=== PATIENT | male | born 1990 | race Caucasian/White ===

== ENCOUNTER → 2017-12-06 | Outpatient (CLI) | payer BC ==
[~2017-12-06] MED LIST: DIATRIZOATE MEGL/DIATRIZOA SOD 30 ML BTL PO ONE
[2017-12-06 14:30] LABS: BASOPHILS # (AUTO) 0.1 (0.0-0.1); BASOPHILS % 0.5 % (0.0-1.0); EOSINOPHILS # (AUTO) 0.3 (0.0-0.4); EOSINOPHILS % 1.9 % (0.0-6.0); HEMATOCRIT 42.8 % (38.2-49.6); HEMOGLOBIN 14.1 g/dL (14.0-18.0); LYMPHOCYTES % 37.2 % (18.0-39.1); MEAN CORPUSCULAR HEMOGLOBIN 27.2 pg (28-32); MEAN CORPUSCULAR HGB CONC 32.9 g/dL (31-35); MEAN CORPUSCULAR VOLUME 82.6 fL (81-99); MONOCYTES # (AUTO) 0.6 (0.2-0.8); MONOCYTES % 4.4 % (4.4-11.3); NEUTROPHILS # (AUTO) 7.5 (2.1-6.9); NEUTROPHILS % 55.5 % (38.7-80.0); PLATELET COUNT 320 x10e3/uL (140-360); RED BLOOD COUNT 5.18 x10e6/uL (4.3-5.7); RED CELL DISTRIBUTION WIDTH 13.8 % (11.7-14.4)
[2017-12-06 14:45] LABS: BILIRUBIN,URINE NEGATIVE (NEGATIVE); CLARITY,URINE SL CLOUDY (CLEAR); COLOR,URINE YELLOW (YELLOW); EPITHELIAL CELLS,URINE RARE /LPF; KETONES,URINE NEGATIVE (NEGATIVE); LEUKOCYTE ESTERASE ,URINE NEGATIVE (NEGATIVE); NITRITE,URINE NEGATIVE (NEGATIVE); PROTEIN,URINE DIPSTICK NEGATIVE (NEGATIVE); URINE UROBILINOGEN 0.2 mg/dL (0.2 - 1)
[2017-12-06 14:47] LABS: ALANINE AMINOTRANSFERASE 73 IU/L (0-55); ALBUMIN 3.6 g/dL (3.5-5.0); ALBUMIN/GLOBULIN RATIO 0.9 (0.8-2.0); ALKALINE PHOSPHATASE 84 IU/L (40-150); ANION GAP 11.4 mmol/L (8-16); BLOOD UREA NITROGEN 13 mg/dL (7-26); BUN/CREATININE RATIO 16 (6-25); CALCIUM 9.2 mg/dL (8.4-10.2); CARBON DIOXIDE 29 mmol/L (22-29); CHLORIDE 103 mmol/L (98-107); CREATININE, SERUM 0.82 mg/dL (0.72-1.25); EST GLOMERULAR FILTRATION RATE > 60 ML/MIN (60-); GLUCOSE 93 mg/dL (74-118); POTASSIUM 3.4 mmol/L (3.5-5.1); SODIUM 140 mmol/L (136-145)
--- NOTE | 2017-12-06 16:19 | Diagnostic Imaging Report ---
PROCEDURE: CT ABDOMEN AND PELVIS WITH CONTRAST TECHNIQUE: The abdomen and pelvis were scanned utilizing a multidetector helical scanner from the diaphragm to the lesser trochanter after the IV administration of 100 cc of Isovue 370 and the oral administration of Gastroview/water. Coronal and sagittal multiplanar reformations were obtained. DLP: 1393.77 mGy-cm COMPARISON: None. INDICATIONS: colon hernia FINDINGS: LOWER THORAX: Normal. HEPATOBILIARY: Hepatic steatosis with hepatomegaly. The liver is incompletely visualized but measures at least 23.5 cm in length in the right midclavicular line. Focal fatty sparing adjacent to the gallbladder and diana hepatis. No biliary ductal dilatation. SPLEEN: No splenomegaly. PANCREAS: No focal masses or ductal dilatation. ADRENALS: No adrenal nodules. KIDNEYS/URETERS: No hydronephrosis, stones, or solid mass lesions. PELVIC ORGANS/BLADDER: Focal bladder wall thickening at the dome (sagittal image 81) measuring approximately 2.5 cm in thickness. There a focus of air within this area of wall thickening with connection between the bladder dome and sigmoid colon (coronal image 56). PERITONEUM / RETROPERITONEUM: No free air or fluid. LYMPH NODES: No lymphadenopathy. VESSELS: Unremarkable. GI TRACT: No distention or wall thickening aside from the segment of sigmoid colon abutting the bladder. Colonic diverticula without evidence acute diverticulitis. The left abdominal wall is not completely visualized and extends out of the scan. 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 The hernia sac measures approximately 15.6 x 13 x 19.5 cm (SI x AP x TV) with 6.1 x 7.3 cm (SI x TV) neck. No evidence of strangulation or obstruction. BONES AND SOFT TISSUES: See above regarding left abdominal wall. Otherwise, unremarkable. IMPRESSION: 1. 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 No evidence of strangulation or obstruction. 2. Findings concerning for colovesicular fistula at the anterior bladder dome related to sigmoid diverticular disease. 3. Hepatomegaly and hepatic steatosis. Dictated by: Sotero Darnell M.D. on 12/06/2017 at 16:19 Electronically approved by: Sotero Darnell M.D. on 12/06/2017 at 16:19
[2017-12-06 17:03] LABS: EOSINOPHILS % (MANUAL) 2 % (0-7); HYPOCHROMASIA MODE; LYMPHOCYTES % (MANUAL) 37 % (19-48); MONOCYTES % (MANUAL) 8 % (3.4-9.0); NEUTROPHILS % (MANUAL) 53 % (40-74); PLATELET ESTIMATE ADEQUATE; POLYCHROMASIA FEW; RBC MORPHOLOGY COMMENT ABNORMAL
== END ==
LOC: CT 14:01
PROVIDERS: ATTEND Surgery
DX: Z93.3 Colostomy status (principal); K43.5 Parastomal hernia without obstruction or gangrene; K76.0 Fatty (change of) liver, not elsewhere classified; R16.0 Hepatomegaly, not elsewhere classified
CPT/HCPCS: 36415; 74177; 80053; 81001; 85025; 87086

== ENCOUNTER 2018-06-12 20:35 | Inpatient (IN) | payer BC ==
[~2018-06-12] VITALS: Ht 182.9 cm; Wt 140.8 kg
[2018-06-12] MEDS ORDERED: ONDANSETRON HCL INJ 2 MG/ML VIAL IV STA (21:28)
[2018-06-12] MEDS ORDERED: ACETAMINOPHEN 1000 MG/100 ML IV STA (21:28)
[2018-06-12] MEDS ORDERED: SODIUM CHLORIDE 0.9% 1000ML 1,000 ML IV ONE (21:30)
[2018-06-12] MEDS ORDERED: PIPER-TAZ 3.375 GM 50 ML IV STA (21:34)
[2018-06-12] MEDS ORDERED: DIATRIZOATE MEGL/DIATRIZOA SOD 30 ML BTL PO ONE (21:40)
[2018-06-12 22:01] LABS: BASOPHILS % 0.2 % (0.0-1.0); EOSINOPHILS % 0.1 % (0.0-6.0); HEMATOCRIT 41.1 % (38.2-49.6); HEMOGLOBIN 13.5 g/dL (14.0-18.0); LYMPHOCYTES # (AUTO) 0.8 (1.0-3.2); LYMPHOCYTES % 8.6 % (18.0-39.1); MEAN CORPUSCULAR HEMOGLOBIN 27.1 pg (28-32); MEAN CORPUSCULAR HGB CONC 32.8 g/dL (31-35); MEAN CORPUSCULAR VOLUME 82.5 fL (81-99); MONOCYTES % 0.4 % (4.4-11.3); NEUTROPHILS # (AUTO) 8.4 (2.1-6.9); NEUTROPHILS % 90.2 % (38.7-80.0); PLATELET COUNT 278 x10e3/uL (140-360); RED BLOOD COUNT 4.98 x10e6/uL (4.3-5.7); RED CELL DISTRIBUTION WIDTH 13.8 % (11.7-14.4)
[2018-06-12 22:18] LABS: ALANINE AMINOTRANSFERASE 47 IU/L (0-55); ALBUMIN 3.4 g/dL (3.5-5.0); ALBUMIN/GLOBULIN RATIO 0.7 (0.8-2.0); ALKALINE PHOSPHATASE 108 IU/L (40-150); ANION GAP 17.3 mmol/L (8-16); BLOOD UREA NITROGEN 14 mg/dL (7-26); BUN/CREATININE RATIO 11 (6-25); CALCIUM 9.5 mg/dL (8.4-10.2); CARBON DIOXIDE 20 mmol/L (22-29); CHLORIDE 98 mmol/L (98-107); CREATININE, SERUM 1.26 mg/dL (0.72-1.25); EST GLOMERULAR FILTRATION RATE > 60 ML/MIN (60-); GLUCOSE 116 mg/dL (74-118); POTASSIUM 3.3 mmol/L (3.5-5.1); SODIUM 132 mmol/L (136-145)
[2018-06-12] MEDS ORDERED: SODIUM CHLORIDE 0.9% 50ML 50 ML ONE (23:01)
[2018-06-12] MEDS ORDERED: IOPAMIDOL 370 MG/ML 200 ML INFUS..BTL INJ ONE (23:01)
[2018-06-12 23:02] LABS: BILIRUBIN,URINE 1+ (NEGATIVE); CLARITY,URINE SL CLOUDY (CLEAR); COLOR,URINE ORANGE (YELLOW); KETONES,URINE TRACE (NEGATIVE); LEUKOCYTE ESTERASE ,URINE TRACE (NEGATIVE); NITRITE,URINE NEGATIVE (NEGATIVE); PROTEIN,URINE DIPSTICK 2+ (NEGATIVE); URINE UROBILINOGEN 4 mg/dL (0.2 - 1)
[2018-06-12 23:03] LABS: BACTERIA,URINE RARE /HPF; EPITHELIAL CELLS,URINE FEW /LPF; MUCUS,URINE FEW (RARE)
--- NOTE | 2018-06-12 23:56 | Diagnostic Imaging Report ---
EXAM: CT ABDOMEN AND PELVIS with IV CONTRAST DATE: 06/12/2018 9:28 PM Time stamp on Exam: 2255 hours INDICATION: Abdominal pain, fever, nausea, pain right groin COMPARISON: CT of the abdomen and pelvis December 06, 2017 TECHNIQUE: The abdomen and pelvis were scanned using a multidetector helical scanner. Coronal and sagittal reformations were obtained. Dose modulation, iterative reconstruction, and/or weight based adjustment of the mA/kV was utilized to reduce the radiation dose to as low as reasonably achievable. Routine protocol performed. IV Contrast: 100 cc Isovue 370 Oral Contrast: Gastrografin FINDINGS: LOWER THORAX: No consolidations LIVER: No masses BILIARY: The gallbladder is unremarkable. No ductal dilation. SPLEEN: No masses PANCREAS: No masses ADRENALS: No nodules KIDNEYS: Symmetric perfusion. No enhancing masses. No hydronephrosis. GI TRACT: Abnormal loop of sigmoid colon with wall thickening and several diverticula. There is direct colonic attachment to the underlying bladder with an approximately 3.6 cm circular area containing debris and contrast within the bladder wall dome. Surrounding inflammation. No bowel obstruction. Normal appendix. VESSELS: Unremarkable PERITONEUM/RETROPERITONEUM: No free air or fluid LYMPH NODES: No lymphadenopathy REPRODUCTIVE ORGANS: Unremarkable BLADDER: Marked bladder wall thickening and surrounding inflammation. SOFT TISSUES: Large hernia left lower abdomen. Per report the patient has a colostomy, which is out of field of view. Parastomal hernia contains loops of large and small bowel without obstruction. BONES: No suspicious bone lesions. IMPRESSION: Findings as described above are most consistent with diverticulitis of the sigmoid colon with fistulization to the bladder dome. Signed by: Dr. Laura West M.D. on 06/12/2018 11:52 PM
[2018-06-13] VITALS (10 sets, daily range): BP systolic 115–144; BP diastolic 50–72
[2018-06-13] MEDS: METRONIDAZOLE 500MG/NS 100ML 100 ML IV SCH ×3 (01:07→11:51)
[2018-06-13] MEDS: KCL 20MEQ/.9 SOD CHL 1,000 ML IV SCH ×3 (01:07→15:51)
[2018-06-13] MEDS: ONDANSETRON HCL INJ 2 MG/ML VIAL IV PRN ×4 (01:40→20:50)
[2018-06-13] MEDS: MORPHINE SULFATE 2 MG/ML SYR IV PRN ×5 (01:40→20:50)
[2018-06-13] MEDS: PIPER-TAZ 3.375 GM / NS 50ML IV SCH ×3 (05:12→21:05)
[2018-06-13] MEDS: ACETAMINOPHEN 1000 MG/100 ML IV PRN ×2 (08:35→17:07)
--- NOTE | 2018-06-13 08:43 | History and Physical ---
CHIEF COMPLAINT: Burning and frequency of urine and lower abdominal pain since the last 3-4 days and progressively worsening associated with fever. HISTORY OF PRESENT ILLNESS: A 28-year-old pleasant male with a past medical history of partial colectomy with diverting colostomy done in May 2015 for colovesical fistula was admitted at [facility] with the above complaints. As per the patient, he had colovesical fistula in May 2015. Had partial colectomy with diverting colostomy. After that, the patient did not have health insurance so did not go for reversion colostomy. The patient was seen in my office this year for the first time. The patient was referred to surgeon, Dr. Barry Roe, for treatment. During the last 3 years, the patient also developed colostomy hernia. The patient started having burning and urine frequency since the last 3-4 days. Then the patient started having lower abdominal pain progressively getting worse associated with fever with generalized weakness. Hence, the patient came to the ER last night. In the emergency room, the patient was found to have diverticulitis with colovesical fistula, and hence the patient was admitted for further care and treatment. In the emergency room, the patient was given IV Flagyl, IV Zosyn, IV fluids. At present, the patient is lying comfortably in bed. No apparent distress. No chest pain. No shortness of breath. No nausea, vomiting or diarrhea. No loss of consciousness. No palpitations. No headaches. No hematemesis. No melena. No hematuria. No palpitations. No seizures. No abnormal bleeding. Fever plus. Lower abdominal pain plus. PAST MEDICAL HISTORY 1. Ulcerative colitis. 2. Diverticulitis, status post partial colectomy with colostomy in 2014 due to colovesical fistula. MEDICATIONS: None. SURGICAL HISTORY: Partial colectomy with colostomy in 2014. FAMILY HISTORY: Noncontributory. SOCIAL HISTORY: No smoking. No alcohol. No recreational drug use. and lives with family. ALLERGIES: NO KNOWN DRUG ALLERGIES. REVIEW OF SYSTEMS: As per HPI. PHYSICAL EXAMINATION GENERAL: The patient is alert and oriented times 3. No apparent distress. Lying in bed. VITALS: T-max is 102, temperature 102, pulse 100 per minute, respiratory rate 18 per minute, blood pressure is 127/66, saturation 98%. HEENT: No signs of icterus. No pallor. Normocephalic and atraumatic. PERRLA. NECK: Soft and supple. No JVD or lymphadenopathy. LUNGS: Air entry bilaterally. HEART: S1 and S2. No murmur or gallop. ABDOMEN: Soft. Lower abdominal tenderness plus. RANGE AIDE: Alert and oriented times 3. No focal deficits. EXTREMITIES: No cyanosis. No clubbing. No edema. No calf pain. LABS: On admission to the ER, white count 9.2, hemoglobin 13.5, hematocrit 41.1, and platelets 278,000. Sodium 132, potassium 3.3, chloride 98, bicarb 20, BUN 14, creatinine 1.26, glucose 116. AST 41, ALT 47, alkaline phosphatase 108. Blood and urine cultures pending. CT of the abdomen and pelvis with IV contrast shows diverticulitis of the sigmoid colon with fistula in the bladder dome. ASSESSMENT: Diverticulitis with colovesical fistula with urinary tract infection. PLAN: Admit the patient to medical floor. Flagyl 500 mg IVPB q.6 h., Zosyn 3.375 g IVPB q.8 h. Pancultures, IV fluids, n.p.o. Surgical consult with Dr. Barry Roe. Urology consultation with Dr. Reyes. ID consultation with Dr. Webb. GI consultation with Dr. Varela. Check serial lytes. Further care and treatment while the patient is in the hospital. Discussed with the patient in detail. Job#: [id number] KEILA
[2018-06-13 08:44] LABS: BASOPHILS % 0.3 % (0.0-1.0); HEMATOCRIT 35.9 % (38.2-49.6); HEMOGLOBIN 11.6 g/dL (14.0-18.0); LYMPHOCYTES # (AUTO) 0.7 (1.0-3.2); LYMPHOCYTES % 5.1 % (18.0-39.1); MEAN CORPUSCULAR HEMOGLOBIN 26.8 pg (28-32); MEAN CORPUSCULAR HGB CONC 32.3 g/dL (31-35); MEAN CORPUSCULAR VOLUME 82.9 fL (81-99); MONOCYTES # (AUTO) 0.4 (0.2-0.8); MONOCYTES % 2.8 % (4.4-11.3); NEUTROPHILS # (AUTO) 11.8 (2.1-6.9); NEUTROPHILS % 91.3 % (38.7-80.0); PLATELET COUNT 220 x10e3/uL (140-360); RED BLOOD COUNT 4.33 x10e6/uL (4.3-5.7); RED CELL DISTRIBUTION WIDTH 14.1 % (11.7-14.4)
[2018-06-13 09:07] LABS: ALANINE AMINOTRANSFERASE 75 IU/L (0-55); ALBUMIN 2.7 g/dL (3.5-5.0); ALBUMIN/GLOBULIN RATIO 0.7 (0.8-2.0); ALKALINE PHOSPHATASE 77 IU/L (40-150); ANION GAP 16.6 mmol/L (8-16); BLOOD UREA NITROGEN 13 mg/dL (7-26); BUN/CREATININE RATIO 11 (6-25); CALCIUM 8.1 mg/dL (8.4-10.2); CARBON DIOXIDE 20 mmol/L (22-29); CHLORIDE 103 mmol/L (98-107); CREATININE, SERUM 1.14 mg/dL (0.72-1.25); EST GLOMERULAR FILTRATION RATE > 60 ML/MIN (60-); GLUCOSE 107 mg/dL (74-118); POTASSIUM 3.6 mmol/L (3.5-5.1); SODIUM 136 mmol/L (136-145)
--- NOTE | 2018-06-13 13:00 | Consultation ---
DATE OF CONSULTATION: REASON FOR CONSULTATION 1. UTI. 2. History of diverticulitis. HISTORY OF PRESENT ILLNESS: This patient who is 28-year-old male with history of obesity. He had a partial colectomy with diverting colostomy done in 2014 for colovesical fistula, was done at [facility], he is telling me that, but the H and P said [facility]. The patient is telling me he has not followed up with his surgeon. He is coming with fever and chills, which had been gone on for a week, not feeling well for a week, urgency and frequency. The urine looked also dark according to him. The patient finally came to the hospital where he is being admitted. He was started on metronidazole and piperacillin and tazobactam. The patient was currently lying in bed comfortably. He said he is feeling better. PAST MEDICAL HISTORY: Apparently ulcerative colitis, diverticulitis, status post partial colectomy and colostomy 2014, colovesical fistula. ALLERGIES: NKA. SOCIAL HISTORY: There is no smoking, drug abuse, or alcohol use. FAMILY HISTORY: Otherwise unremarkable. REVIEW OF SYSTEMS HEENT: Negative. PULMONARY: Negative. CARDIAC: Negative. : As above. He said there is urgency, frequency, and left flank pain. GI: Some nausea. No vomiting. LABORATORY DATA: White count on admission was 9.29, today is 12.9. Sodium is 136, potassium 3.6, and creatinine 1.14. Blood cultures still pending. Patient did have a CAT scan of abdomen and pelvis showed diverticulitis of the sigmoid colon with fistulization to the bladder dome. PHYSICAL EXAMINATION GENERAL: He is currently alert and oriented, does not seem to be in any acute distress. VITAL SIGNS: T-max had been 102.8. HEENT: Not icteric. NECK: Supple. CHEST: Clear. HEART: S1, S2. No murmur. ABDOMEN: Soft. Bowel sounds present. No tenderness. EXTREMITIES: No edema. IMPRESSION: Diverticulitis with the fistula to the bladder with pyelonephritis. PLAN: blood cultures and urine cultures. He is currently on piperacillin and tazobactam. Continue the same. Await cultures and sensitivity. We can discontinue the metronidazole. Await urine culture and sensitivity. Await blood cultures. We will need GI evaluation. We will follow with you. ZACK: 06/13/2018 11:57 Job#: [id number] VALDEZ
--- NOTE | 2018-06-13 19:54 | Consultation ---
DATE OF CONSULTATION: June 13, 2018 This is a 28-year-old gentleman who has a history of partial colectomy with colostomy in 2015 because of colovesical fistula and diverticulitis. The patient apparently complains of some burning and urinary frequency. The patient was found to have UTI. However, upon admission he did have a CT scan, which shows of the sigmoid colon with colovesical fistula also. His medical history at one point he was diagnosed with ulcerative colitis, but he is not taking medication for that. He also has a history of diverticulitis. Again, status post surgery of partial colectomy with colostomy in 2015. MEDICATIONS: At home are none. ALLERGIES: NONE. SOCIAL HISTORY: No alcohol use. FAMILY HISTORY: Noncontributory. REVIEW OF SYSTEMS: Denies any chest pain or shortness of breath. Denies any dysphagia or odynophagia. Denies any history of hematuria or any kind of syncopal episode. PHYSICAL EXAMINATION GENERAL: The patient is awake, alert and appears to be stable. Medically stable at this point. VITAL SIGNS: The patient is febrile with a temperature of 103.1. HEENT: Normocephalic. Sclerae are anicteric. NECK: Supple. HEART: Regular. ABDOMEN: Soft. Colostomy is in place. At this point, it is nontender. EXTREMITIES: No clubbing or cyanosis. LAB VALUES: Significant for WBC of 12.9, hemoglobin of 11.6. The liver enzymes are also elevated with AST of 86 and ALT of 75. He is mildly anemic too. CT scan as mentioned before. IMPRESSION 1. Possible sigmoid diverticulitis with colovesical fistula. 2. Urinary tract infection. 3. Elevated liver function tests. 4. Anemia. RECOMMENDATIONS: Continue antibiotics at this point. Would recommend colonoscopy later on as an outpatient for prior to resection. Abdominal ultrasound also to evaluate the liver. Also, obtain workup for liver disease. Job#: [id number] KEILA cc:ROBERT FERRER M.D.
[2018-06-14] VITALS (7 sets, daily range): BP systolic 117–148; BP diastolic 69–79
[2018-06-14] MEDS: KCL 20MEQ/.9 SOD CHL 1,000 ML IV SCH ×3 (01:11→19:56)
[2018-06-14] MEDS: ONDANSETRON HCL INJ 2 MG/ML VIAL IV PRN ×3 (01:13→17:43)
[2018-06-14] MEDS: MORPHINE SULFATE 2 MG/ML SYR IV PRN ×4 (01:13→14:24)
[2018-06-14 05:40] LABS: BASOPHILS % 0.3 % (0.0-1.0); EOSINOPHILS # (AUTO) 0.1 (0.0-0.4); EOSINOPHILS % 0.7 % (0.0-6.0); HEMATOCRIT 34.1 % (38.2-49.6); HEMOGLOBIN 11.1 g/dL (14.0-18.0); LYMPHOCYTES # (AUTO) 1.1 (1.0-3.2); LYMPHOCYTES % 15.5 % (18.0-39.1); MEAN CORPUSCULAR HEMOGLOBIN 26.9 pg (28-32); MEAN CORPUSCULAR HGB CONC 32.6 g/dL (31-35); MEAN CORPUSCULAR VOLUME 82.8 fL (81-99); MONOCYTES # (AUTO) 0.5 (0.2-0.8); NEUTROPHILS # (AUTO) 5.4 (2.1-6.9); NEUTROPHILS % 75.9 % (38.7-80.0); PLATELET COUNT 192 x10e3/uL (140-360); RED BLOOD COUNT 4.12 x10e6/uL (4.3-5.7); RED CELL DISTRIBUTION WIDTH 13.9 % (11.7-14.4)
[2018-06-14] MEDS: PIPER-TAZ 3.375 GM / NS 50ML IV SCH ×3 (05:45→21:08)
[2018-06-14 06:01] LABS: ALANINE AMINOTRANSFERASE 79 IU/L (0-55); ALBUMIN 2.5 g/dL (3.5-5.0); ALBUMIN/GLOBULIN RATIO 0.6 (0.8-2.0); ALKALINE PHOSPHATASE 70 IU/L (40-150); ANION GAP 14.3 mmol/L (8-16); BLOOD UREA NITROGEN 8 mg/dL (7-26); BUN/CREATININE RATIO 9 (6-25); CALCIUM 8.3 mg/dL (8.4-10.2); CARBON DIOXIDE 22 mmol/L (22-29); CHLORIDE 102 mmol/L (98-107); CREATININE, SERUM 0.87 mg/dL (0.72-1.25); EST GLOMERULAR FILTRATION RATE > 60 ML/MIN (60-); GLUCOSE 101 mg/dL (74-118); POTASSIUM 3.3 mmol/L (3.5-5.1); SODIUM 135 mmol/L (136-145)
[2018-06-14] MEDS ORDERED: POTASSIUM CHLORIDE 20 MEQ TAB CR PO STA (08:04)
[2018-06-14] MEDS ORDERED: ACETAMINOPHEN 325 MG TAB PO PRN (08:15)
--- NOTE | 2018-06-14 13:41 | Diagnostic Imaging Report ---
EXAM: Complete Abdominal Ultrasound INDICATION: \S\ELEVATED LFT COMPARISON: CT abdomen and pelvis 06/12/2018 TECHNIQUE: Transverse and longitudinal images of the upper abdomen were obtained. FINDINGS: Liver: Size: 17.1 cm in the right midclavicular line, increased Appearance: Increased echogenicity, smooth contour Mass: No focal masses Spleen: Size: 12.5 cm in length, normal Echogenicity: Normal Mass: No focal masses Gallbladder: Stones/Sludge: 0.4 cm echogenic rounded structure within the gallbladder, which is nonmobile may represent a polyp or nonmobile stone. Wall: 0.2 cm Appearance: No wall thickening, pericholecystic fluid or hydrops. Sonographic Mcgarry's Sign: Negative Bile Ducts: Intrahepatic Ducts: No dilatation Extrahepatic Ducts: Common bile duct measures 0.4 cm, no dilatation Pancreas: Visualized portions of the pancreatic head, neck and proximal body are normal. Kidneys: Length: Right 12.1 cm Left 12.2 cm Echogenicity: Normal Collecting System: No hydronephrosis Stone: None Cyst/Mass: None Vessels: Aorta: Visualized portions are normal Inferior Vena Cava: Visualized portions are normal Main Portal Vein: 1.0 cm, normal size with hepatopetal flow. Free Fluid: No ascites or pleural effusion IMPRESSION: 1. Mild hepatomegaly with associated hepatic steatosis. 2. Borderline spleen may relate to early portal hypertension. The main portal vein is normal in size. 3. Small echogenic structure in the gallbladder (0.4 cm) may represent a nonmobile stone versus gallbladder polyp. Signed by: Dr. Salina Sheikh M.D. on 06/14/2018 1:38 PM
[2018-06-14] MEDS: ENOXAPARIN SOD INJ 40 MG/0.4 ML SYR SC SCH (17:37)
[2018-06-14] MEDS: MORPHINE SULFATE INJ 4 MG/ML INJ IV PRN ×2 (18:58→23:40)
[2018-06-15] VITALS (8 sets, daily range): BP systolic 131–144; BP diastolic 71–83
[2018-06-15] MEDS: KCL 20MEQ/.9 SOD CHL 1,000 ML IV SCH ×4 (00:30→21:56)
[2018-06-15] MEDS: MORPHINE SULFATE INJ 4 MG/ML INJ IV PRN ×5 (03:27→21:50)
[2018-06-15] MEDS: PIPER-TAZ 3.375 GM / NS 50ML IV SCH ×2 (05:30→14:09)
[2018-06-15 06:47] LABS: BASOPHILS % 0.5 % (0.0-1.0); EOSINOPHILS # (AUTO) 0.2 (0.0-0.4); HEMATOCRIT 34.9 % (38.2-49.6); HEMOGLOBIN 11.3 g/dL (14.0-18.0); LYMPHOCYTES # (AUTO) 1.2 (1.0-3.2); LYMPHOCYTES % 18.3 % (18.0-39.1); MEAN CORPUSCULAR HEMOGLOBIN 26.6 pg (28-32); MEAN CORPUSCULAR HGB CONC 32.4 g/dL (31-35); MEAN CORPUSCULAR VOLUME 82.1 fL (81-99); MONOCYTES # (AUTO) 0.5 (0.2-0.8); MONOCYTES % 7.2 % (4.4-11.3); NEUTROPHILS # (AUTO) 4.4 (2.1-6.9); NEUTROPHILS % 70.4 % (38.7-80.0); PLATELET COUNT 196 x10e3/uL (140-360); RED BLOOD COUNT 4.25 x10e6/uL (4.3-5.7)
[2018-06-15 07:15] LABS: ALANINE AMINOTRANSFERASE 83 IU/L (0-55); ALBUMIN 2.5 g/dL (3.5-5.0); ALBUMIN/GLOBULIN RATIO 0.6 (0.8-2.0); ALKALINE PHOSPHATASE 87 IU/L (40-150); ANION GAP 15.7 mmol/L (8-16); BLOOD UREA NITROGEN 5 mg/dL (7-26); BUN/CREATININE RATIO 7 (6-25); CALCIUM 8.7 mg/dL (8.4-10.2); CARBON DIOXIDE 23 mmol/L (22-29); CHLORIDE 104 mmol/L (98-107); CREATININE, SERUM 0.76 mg/dL (0.72-1.25); EST GLOMERULAR FILTRATION RATE > 60 ML/MIN (60-); GLUCOSE 93 mg/dL (74-118); POTASSIUM 3.7 mmol/L (3.5-5.1); SODIUM 139 mmol/L (136-145)
[2018-06-15] MEDS: ONDANSETRON HCL INJ 2 MG/ML VIAL IV PRN (08:10)
[2018-06-15] MEDS: ENOXAPARIN SOD INJ 40 MG/0.4 ML SYR SC SCH (17:26)
[2018-06-15] MEDS: CEFTRIAXONE SOD 1 GM VIAL IV SCH (17:26)
[2018-06-16] VITALS (7 sets, daily range): BP systolic 122–154; BP diastolic 59–97
[2018-06-16] MEDS ORDERED: SODIUM CHLORIDE 0.9% 50ML 50 ML ONE (01:54)
[2018-06-16] MEDS: CEFTRIAXONE SOD 1 GM VIAL IV SCH ×2 (02:03→15:34)
[2018-06-16] MEDS: MORPHINE SULFATE INJ 4 MG/ML INJ IV PRN ×5 (02:04→20:33)
[2018-06-16] MEDS: KCL 20MEQ/.9 SOD CHL 1,000 ML IV SCH (06:52)
[2018-06-16 07:25] LABS: ALANINE AMINOTRANSFERASE 111 IU/L (0-55); ALBUMIN 2.7 g/dL (3.5-5.0); ALBUMIN/GLOBULIN RATIO 0.6 (0.8-2.0); ALKALINE PHOSPHATASE 140 IU/L (40-150); ANION GAP 16.4 mmol/L (8-16); BLOOD UREA NITROGEN 6 mg/dL (7-26); BUN/CREATININE RATIO 7 (6-25); CALCIUM 9.4 mg/dL (8.4-10.2); CARBON DIOXIDE 24 mmol/L (22-29); CHLORIDE 103 mmol/L (98-107); CREATININE, SERUM 0.85 mg/dL (0.72-1.25); EST GLOMERULAR FILTRATION RATE > 60 ML/MIN (60-); GLUCOSE 94 mg/dL (74-118); POTASSIUM 4.4 mmol/L (3.5-5.1); SODIUM 139 mmol/L (136-145)
[2018-06-16] MEDS: ONDANSETRON HCL INJ 2 MG/ML VIAL IV PRN (11:30)
[2018-06-16] MEDS: ENOXAPARIN SOD INJ 40 MG/0.4 ML SYR SC SCH (17:07)
[2018-06-17] VITALS (7 sets, daily range): BP systolic 123–160; BP diastolic 57–95
--- NOTE | 2018-06-17 00:46 | Progress Note ---
DATE: GASTROENTEROLOGY PROGRESS NOTE SUBJECTIVE: The patient reports that the abdominal pain is mildly improved, however, still on liquids. OBJECTIVE VITAL SIGNS: Febrile. LUNGS: Clear. CVS: S1 and S2 normal. ABDOMEN: Soft. Mild diffuse tenderness. IMPRESSION: Abdominal pain and diverticulitis, complicated by colovesical fistula. RECOMMENDATIONS AND PLAN 1. Advance diet as per surgery recommendations. 2. Consider repeat CT scan next week. 3. Continue IV antibiotics. Job#: [id number] RTMarcia
[2018-06-17] MEDS: CEFTRIAXONE SOD 1 GM VIAL IV SCH (03:28)
[2018-06-17] MEDS: MORPHINE SULFATE INJ 4 MG/ML INJ IV PRN ×5 (03:30→22:55)
[2018-06-17 07:14] LABS: BASOPHILS # (AUTO) 0.1 (0.0-0.1); BASOPHILS % 0.6 % (0.0-1.0); EOSINOPHILS # (AUTO) 0.3 (0.0-0.4); EOSINOPHILS % 3.3 % (0.0-6.0); HEMATOCRIT 40.2 % (38.2-49.6); LYMPHOCYTES # (AUTO) 2.9 (1.0-3.2); LYMPHOCYTES % 32.7 % (18.0-39.1); MEAN CORPUSCULAR HEMOGLOBIN 26.9 pg (28-32); MEAN CORPUSCULAR HGB CONC 32.3 g/dL (31-35); MEAN CORPUSCULAR VOLUME 83.1 fL (81-99); MONOCYTES # (AUTO) 0.5 (0.2-0.8); MONOCYTES % 6.1 % (4.4-11.3); NEUTROPHILS # (AUTO) 4.8 (2.1-6.9); NEUTROPHILS % 54.6 % (38.7-80.0); PLATELET COUNT 287 x10e3/uL (140-360); RED BLOOD COUNT 4.84 x10e6/uL (4.3-5.7); RED CELL DISTRIBUTION WIDTH 14.2 % (11.7-14.4)
[2018-06-17] MEDS ORDERED: MUPIROCIN 2% OINT 22 GM TUBE ONE (07:26)
[2018-06-17 07:32] LABS: ALANINE AMINOTRANSFERASE 167 IU/L (0-55); ALBUMIN/GLOBULIN RATIO 0.6 (0.8-2.0); ALKALINE PHOSPHATASE 179 IU/L (40-150); ANION GAP 17.3 mmol/L (8-16); BLOOD UREA NITROGEN 7 mg/dL (7-26); BUN/CREATININE RATIO 8 (6-25); CARBON DIOXIDE 26 mmol/L (22-29); CHLORIDE 101 mmol/L (98-107); CREATININE, SERUM 0.83 mg/dL (0.72-1.25); EST GLOMERULAR FILTRATION RATE > 60 ML/MIN (60-); GLUCOSE 104 mg/dL (74-118); POTASSIUM 4.3 mmol/L (3.5-5.1); SODIUM 140 mmol/L (136-145)
[2018-06-17] MEDS ORDERED: FENTANYL CITRATE/PF 100MCG/2 ML INJ ONE (08:06)
[2018-06-17] MEDS ORDERED: MORPHINE SULFATE 2 MG/ML SYR ONE ×2 (08:17→08:32)
[2018-06-17] MEDS: ONDANSETRON HCL INJ 2 MG/ML VIAL IV PRN (13:20)
[2018-06-17 13:23] LABS: EOSINOPHILS % (MANUAL) 3 % (0-7); LYMPHOCYTES % (MANUAL) 44 % (19-48); METAMYELOCYTES % (MANUAL) 1 % (0-0); MONOCYTES % (MANUAL) 3 % (3.4-9.0); MYELOCYTES % (MANUAL) 2 % (0-0); NEUTROPHILS % (MANUAL) 47 % (40-74)
[2018-06-17 13:24] LABS: PLATELET ESTIMATE ADEQUATE; PLATELET MORPHOLOGY COMMENT NORMAL; RBC MORPHOLOGY COMMENT NORMAL
[2018-06-17] MEDS: CIPROFLOXACIN 500 MG TAB PO SCH (18:16)
[2018-06-17] MEDS: ENOXAPARIN SOD INJ 40 MG/0.4 ML SYR SC SCH (18:16)
[2018-06-18] VITALS: BP 122/65
[2018-06-18 00:22] VITALS: BP 126/66
[2018-06-18 04:00] VITALS: BP 123/75
[2018-06-18 05:10] LABS: ALPHA-1-ANTITRYPSIN 225 mg/dL (90-200)
[2018-06-18 05:42] LABS: ALANINE AMINOTRANSFERASE 180 IU/L (0-55); ALBUMIN/GLOBULIN RATIO 0.6 (0.8-2.0); ALKALINE PHOSPHATASE 179 IU/L (40-150); ANION GAP 18.2 mmol/L (8-16); BLOOD UREA NITROGEN 11 mg/dL (7-26); BUN/CREATININE RATIO 12 (6-25); CALCIUM 9.7 mg/dL (8.4-10.2); CARBON DIOXIDE 25 mmol/L (22-29); CHLORIDE 101 mmol/L (98-107); CREATININE, SERUM 0.95 mg/dL (0.72-1.25); EST GLOMERULAR FILTRATION RATE > 60 ML/MIN (60-); GLUCOSE 105 mg/dL (74-118); POTASSIUM 4.2 mmol/L (3.5-5.1); SODIUM 140 mmol/L (136-145)
[2018-06-18] MEDS: MORPHINE SULFATE INJ 4 MG/ML INJ IV PRN (06:06)
[2018-06-18 07:10] VITALS: BP 125/67
[2018-06-18 07:41] VITALS: BP 125/67
[2018-06-18] MEDS: CIPROFLOXACIN 500 MG TAB PO SCH (08:39)
[2018-06-18] MEDS ORDERED: CIPRO500 MG PO (10:40)
[2018-06-18] MEDS ORDERED: FLAGYL250 MG PO (10:41)
--- OUTSIDE RECORDS SUMMARY | 2018-06-18 12:51 | XMS REPORT | Clinical Summary ---
Author Author [place] [facility] Address Unknown Phone Unavailable Care Team Providers Care Tube Buffer Name Role Phone Asked, No Pcp PCP Unavailable Allergies Active Allergy Reactions Severity Noted Date Comments Barium Iodide Other (See Comments) High 03/12/2017 "intestinal swelling" Current Medications No known medications Active Problems Problem Noted Date Generalized abdominal pain 03/12/2017 Social History Tobacco Use Types Packs/Day Years Used Date Never Smoker Alcohol Use Drinks/Week oz/Week Comments No Sex Assigned at Date Recorded Not on file Last Filed Vital Signs Not on file Plan of Treatment Health Maintenance Due Date Last Done Comments INFLUENZA VACCINE 04/03/2018 Results Not on fileafter 06/11/2017
--- OUTSIDE RECORDS SUMMARY | 2018-06-18 12:51 | XMS REPORT | Clinical Summary ---
Author Author [place] [facility] Address Unknown Phone Unavailable Care Team Providers Care Career Education Teacher Name Role Phone Asked, No Pcp PCP [...] INFLUENZA VACCINE 04/03/2018 Results Not on fileafter 06/12/2017
--- OUTSIDE RECORDS SUMMARY | 2018-06-18 12:51 | XMS REPORT ---
Author Author [facility] Address Unknown Phone Unavailable Care Team Providers Care Caddy Master Name Role Phone ROBERT FERRER Unavailable Unavailable Radha LOGAN Unavailable Unavailable Problems This patient has no known problems. Allergies, Adverse Reactions, Alerts This patient has no known allergies or adverse reactions. Medications This patient has no known medications. Results Test Description Test Time Test Comments Text Results Atomic Results Result Comments US ABDOMEN COMPLETE 2018-06-14 13:35:00 [place] [address] Patient Name: TE TRAVIS MR #: [id number] : 1990 Age/Sex: 28/M Req #: [id number] [facility] Physician: ROBERT FERRER MD Ordered by: CINTHIA FERNANDEZ MD Report #: [id number] Location: MED/SURG3 Room/Bed: [facility] Procedure: [id number] US/US ABDOMEN COMPLETE Exam Date: Exam Time: REPORT STATUS: Signed EXAM: Complete Abdominal Ultrasound INDICATION: COMPARISON: CT abdomen and pelvis 06/12/2018 TECHNIQUE: Transverse and longitudinal images of the upper abdomen were obtained. FINDINGS: Liver: Size: 17.1 cm in the right midclavicular line, increased Appearance: Increased echogenicity, smooth contour Mass: No focal masses Spleen: Size: 12.5 cm in length, normal Echogenicity: Normal Mass: No focal masses Gallbladder: Stones/Sludge: 0.4 cm echogenic rounded structure within the gallbladder, which is nonmobile may represent a polyp or nonmobile stone. Wall: 0.2 cm Appearance: No wall thickening, pericholecystic fluid or hydrops. Sonographic Mcgarry's Sign: Negative Bile Ducts: Intrahepatic Ducts: No dilatation Extrahepatic Ducts: Common bile duct measures 0.4 cm, no dilatation Pancreas: Visualized portions of the pancreatic head, neck and proximal body are normal. Kidneys: Length: Right 12.1 cm Left 12.2 cm Echogenicity: Normal Collecting System: No hydronephrosis Stone: None Cyst/Mass: None Vessels: Aorta: Visualized portions are normal Inferior Vena Cava: Visualized portions are normal Main Portal Vein: 1.0 cm, normal size with hepatopetal flow. Free Fluid: No ascites or pleural effusion IMPRESSION: 1. Mild hepatomegaly with associated hepatic steatosis. 2. Borderline spleen may relate to early portal hypertension. The main portal vein is normal in size. 3. Small echogenic structure in the gallbladder (0.4 cm) may represent a nonmobile stone versus gallbladder polyp. Signed by: Dr. Jessie Crystal M.D. on 06/14/2018 1:38 PM Dictated By: JESSIE CRYSTAL MD [address] [place] scribed By: PEDRO on 06/14/181337 COPY TO: CINTHIA FERNANDEZ MD CT ABDOMEN/PELVIS W 2018-06-12 23:40:00 [place] [address] Patient Name: ET TRAVIS MR #: [id number] : 1990 Age/Sex: 28/M Req #: [id number] Adm Physician: Ordered by: DOMINIQUE ESCOBEDO MD Report #: [id number] Location: Room/Bed: Procedure: [id number] CT/CT ABDOMEN/PELVIS W Exam Date: 06/12/18 Exam Time: 2300 REPORT STATUS: Signed EXAM: CT ABDOMEN AND PELVIS with IV CONTRAST DATE: 06/12/2018 9:28 PM Time stamp on Exam: 2255 hours INDICATION: Abdominal pain, fever, nausea, pain right groin COMPARISON: CT of the abdomen and pelvis December 06, 2017 TECHNIQUE: The abdomen and pelvis were scanned using a multidetector helical scanner. Coronal and sagittal reformations were obtained. Dose modulation, iterative reconstruction, and/or weight based adjustment of the mA/kV was utilized to reduce the radiation dose to as low as reasonably achievable. Routine protocol performed. IV Contrast: 100 cc Isovue 370 Oral Contrast: Gastrografin FINDINGS: LOWER THORAX: No consolidations LIVER: No masses BILIARY: The gallbladder is unremarkable. No ductal dilation. SPLEEN: No masses PANCREAS: No masses ADRENALS: No nodules KIDNEYS: Symmetric perfusion. No enhancing masses. No hydronephrosis. GI TRACT: Abnormal loop of sigmoid colon with wall thickening and several diverticula. There is direct colonic attachment to the underlying bladder with an approximately 3.6 cm circular area containing debris and contrast within the bladder wall dome. Surrounding inflammation. No bowel obstruction. Normal appendix. VESSELS: Unremarkable PERITONEUM/RETROPERITONEUM: No free air or fluid LYMPH NODES: No lymphadenopathy REPRODUCTIVE ORGANS: Unremarkable BLADDER: Marked bladder wall thickening and surrounding inf lammation. SOFT TISSUES: Large hernia left lower abdomen. Per report the patient has a colostomy, which is out of field of view. Parastomal hernia contains loops of large and small bowel without obstruction. BONES: No suspicious bone lesions. IMPRESSION: Findings as described above are most consistent with diverticulitis of the sigmoid colon with fistulization to the bladder dome. Signed by: Dr. Jeanmarie West M.D. on 06/12/2018 11:52 PM Dictated By: JEANMARIE WEST MD [id number] Transcribed By: PEDRO on 06/12/18 [id number] COPY TO: DOMINIQUE ESCOBEDO MD CT ABDOMEN/PELVIS W [address] [place], [place] [address] Patient Name: TE TRAVIS MR #: [id number] : 1990 Age/Sex: 27/M Req #: [id number] Adm Physician: Ordered by: JULIUS LOGAN MD Report #: [id number] Location: CT Room/Bed: Procedure: [id number] CT/CT ABDOMEN/PELVIS W Exam Date: 12/06/17 Exam Time: 1545 REPORT STATUS: Signed PROCEDURE: CT ABDOMEN AND PELVIS WITH CONTRAST TECHNIQUE: The abdomen and pelvis were scanned utilizing a multidetector helical scanner from the diaphragm to the lesser trochanter after the IV administration of 100 cc of Isovue 370 and the oral administration of Gastroview/water. Coronal and sagittal multiplanar reformations were obtained. DLP: 1393.77 mGy-cm COMPARISON: None. INDICATIONS: colon hernia FINDINGS: LOWER THORAX: Normal. HEPATOBILIARY: Hepatic steatosis with hepatomegaly. The liver is incompletely visualized but measures at least 23.5 cm in length in the right midclavicular line. Focal fatty sparing adjacent to the gallbladder and diana hepatis. No biliary ductal dilatation. SPLEEN: No splenomegaly. PANCREAS: No focal masses or ductal dilatation. AD RENALS: No adrenal nodules. KIDNEYS/URETERS: No hydronephrosis, stones, or solid mass lesions. PELVIC ORGANS/BLADDER: Focal bladder wall thickening at the dome (sagittal image 81) measuring approximately 2.5 cm in thickness. There a focus of air within this area of wall thickening with connection between the bladder dome and sigmoid colon (coronal image 56). PERITONEUM / RETROPERITONEUM: No free air or fluid. LYMPH NODES: No lymphadenopathy. VESSELS: Unremarkable. GI TRACT: No distention or wall thickening aside from the segment of sigmoid colon abutting the bladder. Colonic diverticula without evidence acute diverticulitis. The left abdominal wall is not completely visualized and extends out of the scan. 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 The hernia sac measures approximately 15.6 x 13 x 19.5 cm (SI x AP x TV) with 6.1 x 7.3 cm (SI x TV) neck. No evidence of strangulation or obstruction. BONES AND SOFT TISSUES: See above regarding left abdominal wall. Otherwise, unremarkable. IMPRESSION: 1. 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 No evidence of strangulation or obstruction. 2. Findings concerning for colovesicular fistula at the anterior bladder dome related to sigmoid diverticular disease. 3. Hepatomegaly and hepatic steatosis. Dictated by: Sotero Dunlap M.D. on 12/06/2017 at 16:19 Electronically approved by: Sotero Dunlap M.D. on 12/06/2017 at 16:19 Dictated By: SOTERO DUNLAP MD [id number] Transcribed By: [facility] on 12/06/17 1619 COPY TO: JULIUS LOGAN MD
--- NOTE | 2018-08-24 01:53 | Discharge Summary ---
CHIEF COMPLAINT: Colovesical fistula, diverticulitis. FINAL DIAGNOSES: 1. Diverticulitis. 2. 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 3. Obesity. 4. Debility. DISPOSITION: Home. HISTORY OF PRESENT ILLNESS AND HOSPITAL COURSE: A 28-year-old male with past medical history of partial colectomy and diverting colostomy in 2014 for colovesical fistula, presents to the ER complaining of burning and frequency of urine and lower abdominal pain, 3- to 4-day history along with fever. Since his partial colectomy with a colostomy, he had lost his insurance and he did not return for a reversion colostomy. Being seen in my office for the first time has been referred to Dr. Roe for discussion of reversal. During the last 3 years, the patient has developed colostomy hernia and now has begun having burning and urinary frequency in the last 3 to 4 days along with lower abdominal pain with fever. Underwent review in the ER. With the study, evaluations in the ER and x-rays, there was evidence of diverticulitis with colovesical fistula. Admitted now for treatment regarding the findings of the diverticulitis with colovesical fistula with urinary tract infection. Patient was admitted to the med/surg floor where the patient was initially n.p.o. status, was receiving Flagyl, IV fluids, morphine for pain management. He was also receiving Zosyn 3.375 IV q. 8. He was being seen also by Dr. Webb as well as Dr. Reyes regarding UTIs, the issues of fistula. Dr. Reyes's review reveals fistula, hernia, colostomy, UTIs, obese. Laboratory studies were showing electrolytes with a potassium of 3.3. Kidney functions: BUN 14, creatinine 1.26, glucose 116. CBC stable. He also being reviewed by Dr. Roe, general surgery, and with his evaluation, his assessment was [id number] UTI, no acute diverticulitis, known colovesical fistula status post diverting colostomy. Plan is to continue hydration, continue currently with liquid diet, maintain antibiotic management. No need for surgery at this time. We will do elective resection when the patient has recovered. Further care, the patient was continuing n.p.o. status, was continuing on his medications. Potassium improved to 3.6. White cell count was down to 12,900. His UTI/sepsis was being under the care of myself as well as Dr. Webb from infectious disease standpoint. The Zosyn was continued as well as medications for pain. White blood cell count improved to 7000. Patient was feeling much better; however, he was running a mild temp of 100. This was being addressed with acetaminophen. Creatinine improved to 0.87. Electrolytes were stabilizing. Kidney functions were stabilizing. White cell count was stabilizing. Blood cultures were showing evidence of E. coli. Zosyn was being stopped, and the patient was being switched over to ceftriaxone and with further review by Dr. Reyes, arrangements were being made for elective fistula or bladder repair as an outpatient, stating the patient could be discharged and be discontinued on p.o. antibiotics of Cipro or Levaquin. He began running some mild elevation of his liver enzymes. On 06/15, his total bilirubin was 1.4, AST 66, ALT 83, alk phos 87. Followup AST 92, ALT 111, alk phos 140. Agreement was made with Dr. Webb for the Cipro. Discharge planning was being put in place. Patient was recovering to be afebrile, was taken off the IV antibiotics, now started on Cipro 500 mg p.o. b.i.d. He was able to return home on 06/18/2018 in stable condition. Patient will continue on his current diet. He will be watching diet intake to avoid nuts, seeds, popcorn. He will be returning back to my office within 3 to 5 days. Following back up with Dr. Varela per his instruction, following up with Dr. Webb in 2 weeks, following back up with Dr. Roe in 1 week to discuss surgical reversal. Patient will be on Cipro 500 mg 1 tablet every 12, Flagyl 500 mg every 8. He will be contacting me in my office if there are any further questions or concerns. ROBERT FERRER MD Job#: [id number]
== END 2018-06-18 10:57 | disposition home or self-care (01) | DRG 872 ==
LOC: ER 20:35 → ERHOLD 06-13 00:32 → MED/SURG3 06-13 01:05
PROVIDERS: ADMIT Internal Medicine; ATTEND Internal Medicine
DX: A41.51 Sepsis due to Escherichia coli [E. coli] (principal); K57.32 Diverticulitis of large intestine without perforation or abscess without bleeding; N32.1 Vesicointestinal fistula; N12 Tubulo-interstitial nephritis, not specified as acute or chronic; N17.9 Acute kidney failure, unspecified; Z68.41 Body mass index [BMI] 40.0-44.9, adult; N10 Acute pyelonephritis; Z82.49 Family history of ischemic heart disease and other diseases of the circulatory system; Z93.3 Colostomy status; E66.9 Obesity, unspecified; R31.29 Other microscopic hematuria; K76.0 Fatty (change of) liver, not elsewhere classified; N18.9 Chronic kidney disease, unspecified; D64.9 Anemia, unspecified; R53.81 Other malaise
CPT/HCPCS: 36415; 74177; 76700; 80053; 81001; 82103; 82390; 82948; 83605; 85025; 86039; 86255; 86256; 86671; 86803; 87040; 87071; 87086; 87186; 87205; 87340; 96361; 99284; J0696; J1650; J2270; J2405; J2543; J7030; Q9967

== ENCOUNTER 2018-10-04 05:00 | Inpatient (IN) | payer BC ==
[2018-10-02 10:45] LABS: BASOPHILS # (AUTO) 0.1 (0.0-0.1); BASOPHILS % 0.4 % (0.0-1.0); EOSINOPHILS # (AUTO) 0.2 (0.0-0.4); EOSINOPHILS % 1.5 % (0.0-6.0); HEMATOCRIT 42.2 % (38.2-49.6); HEMOGLOBIN 13.2 g/dL (14.0-18.0); LYMPHOCYTES # (AUTO) 3.9 (1.0-3.2); MEAN CORPUSCULAR HEMOGLOBIN 25.3 pg (28-32); MEAN CORPUSCULAR HGB CONC 31.3 g/dL (31-35); MEAN CORPUSCULAR VOLUME 80.8 fL (81-99); MONOCYTES # (AUTO) 0.6 (0.2-0.8); MONOCYTES % 5.1 % (4.4-11.3); NEUTROPHILS # (AUTO) 6.5 (2.1-6.9); NEUTROPHILS % 57.6 % (38.7-80.0); PLATELET COUNT 335 x10e3/uL (140-360); RED BLOOD COUNT 5.22 x10e6/uL (4.3-5.7); RED CELL DISTRIBUTION WIDTH 14.4 % (11.7-14.4)
[2018-10-02 10:56] LABS: BLOOD UREA NITROGEN 9 mg/dL (7-26); BUN/CREATININE RATIO 11 (6-25); CALCIUM 9.4 mg/dL (8.4-10.2); CARBON DIOXIDE 26 mmol/L (22-29); CHLORIDE 101 mmol/L (98-107); CREATININE, SERUM 0.81 mg/dL (0.72-1.25); EST GLOMERULAR FILTRATION RATE > 60 ML/MIN (60-); GLUCOSE 104 mg/dL (74-118); SODIUM 138 mmol/L (136-145)
[~2018-10-04] VITALS: Ht 182.9 cm; Wt 135.9 kg
[2018-10-04] VITALS (15 sets, daily range): BP systolic 141–168; BP diastolic 78–110
[~2018-10-04 05:00] MED LIST changes: +CIPRO500 MG PO; -DIATRIZOATE MEGL/DIATRIZOA SOD 30 ML BTL PO ONE; +FLAGYL250 MG PO
--- OUTSIDE RECORDS SUMMARY | 2018-10-04 05:11 | XMS REPORT | Clinical Summary ---
Author Author [facility] [employer] Organization [facility] [employer] Address Unknown Phone Unavailable Care Team Providers Care Personal Injury Legal Assistant Name Role Phone Asked, No Pcp PCP Unavailable Allergies Comments Active Allergy Reactions Severity Noted Date "intestinal swelling" Barium Iodide Other (See High 03/12/2017 Comments) Medications No known medications Active Problems Problem Noted Date Generalized abdominal pain 03/12/2017 Social History Date Tobacco Use Types Packs/Day Years Used Never Smoker Alcohol Use Drinks/Week oz/Week Comments No Sex Assigned at Date Recorded Not on file Industry Job Start Date Occupation Not on file Not on file Not on file Travel End Travel History Travel Start No recent travel history available. Last Filed Vital Signs Not on file Plan of Treatment Health Maintenance Due Date Last Done Comments INFLUENZA VACCINE 04/03/2018 Results Not on fileafter 10/03/2017 Advance Directives Patient has advance care planning documents on file. For more information, ellen del valle contact: Gerald Cordero [address] [place] [address]
--- NOTE | 2018-10-04 07:10 | NUR ---
SPIRITUAL CARE - Pre-Surgery Assessment: Pt in bed. Pt's at bedside. Pt reported supportive attention from family and friends. Intervention: I provided pastoral presence, hospitality, prayer, and sympathetic listening. I acquainted pt with availability of drawing supervisor while hospitalized. Outcome: Pt expressed appreciation for visit. No need for follow up indicated at this time. JOSY CASTILLO Senior Risk Analyst Spiritual Care Department O: [phone] Pager: [phone] ([phone] number calling from)
[2018-10-04] MEDS ORDERED: SUGAMMADEX SODIUM 200 MG/2 ML VIAL IV ONE (07:33)
[2018-10-04] MEDS ORDERED: MINERAL OIL STERILE 10ML VIAL ONE (08:12)
[2018-10-04] MEDS ORDERED: BUPIVACAINE 0.25%/EPI 30ML SDV INJ ONE (08:12)
[2018-10-04] MEDS ORDERED: IOPAMIDOL 610MG/1ML 300 MG/ML VIAL IV ONE (08:12)
[2018-10-04] MEDS ORDERED: PIPER-TAZ 3.375 GM 50 ML ONE (08:26)
[2018-10-04] MEDS ORDERED: CLINDAMYCIN PHOS 900MG/ 50ML 50 ML IV ONE (08:26)
[2018-10-04] MEDS ORDERED: MORPHINE SULFATE INJ 10 MG/ML ONE (11:13)
[2018-10-04] MEDS ORDERED: FENTANYL CITRATE/PF 100MCG/2 ML INJ ONE ×2 (11:13→15:48)
[2018-10-04] MEDS ORDERED: KETAMINE HCL INJ 50 MG/ML 10 ML VIAL ONE (11:13)
[2018-10-04] MEDS ORDERED: MIDAZOLAM HCL 2 MG/2 ML VIAL ONE (11:13)
--- NOTE | 2018-10-04 12:31 | Operative Report ---
DATE OF PROCEDURE: October 04, 2018 PREOPERATIVE DIAGNOSES 1. Colovesical fistula. 2. Urinary tract infections. POSTOPERATIVE DIAGNOSES 1. Colovesical fistula. 2. Urinary tract infections. PROCEDURES 1. Cystourethroscopy with left ureteral catheterization and left retrograde pyelogram (separate procedure for multiple chronic urinary tract infections). 2. Cystourethroscopy with right ureteral catheterization and right retrograde pyelogram (separate procedure for multiple chronic urinary tract infections). 3. Supervision of fluoroscopy. 4. Interpretation of retrograde pyelography. 5. Closure of colovesical fistula. COMMUNITY MUSIC THERAPIST: Barry Roe MD ANESTHESIA: General. ESTIMATED BLOOD LOSS: Minimal. COMPLICATIONS: None. INDICATIONS FOR PROCEDURE: Mr. Henry is a 28-year-old male with a previous colostomy diversion, now presenting for definitive management of the fistula. He and I had a long discussion regarding the alternatives, risks and benefits, including doing nothing, stent placement, fistula repair, colectomy, etc. He voiced an understanding of the options, the alternatives, and the risks and benefits, and he elected to undergo repair. PROCEDURE IN DETAIL: After informed consent was obtained, the patient was taken to the operative suite and placed supine on the table and underwent general anesthesia by the anesthesia service. He was placed in the dorsal lithotomy position. He was sterilely prepped and draped in the standard fashion for cystoscopy. A 21-Nauruan cystoscope was inserted per urethra. A normal urethra was noted. Panendoscopy of the bladder revealed no tumors and no stones. There was a very large amount of edema on the posterior wall. No discrete fistula could be seen. Bilateral ureteral orifices were catheterized with 5-Nauruan, open-ended catheters which were advanced and retrograde pyelograms performed revealing delicate collecting systems. At this time, the open-ended catheters were left in the renal collecting systems bilaterally. The scope was withdrawn. A 20-Nauruan Odell catheter was inserted. Prompt return of clear irrigant was returned. The balloon was inflated. The Odell was withdrawn to the bladder neck. X-ray was used to confirm the position of the 5-Nauruan, open-ended catheters in bilateral upper tracts. At this time, the 5-Nauruan, open-ended catheters were secured to the Odell catheter. The right was left right-angled and the left was cut at an oblique angle to identify each open-ended catheter. At this time, the case was turned over to Dr. Barry Roe, who performed distal colon resection. I was recalled to the operating room. An approximately 1 x 1 cm defect was seen in the posterior wall of the bladder. This was extremely inflamed and phlegmon-like. It was debrided until fresh bleeding tissue was encountered. At this time, the bladder was closed as best possible in 2 layers, taking care to ensure healthy tissue was utilized to approximate the edges both mucosally and seromuscularly and finally an external layer. The case was then turned back over to Dr. Roe for completion of the anastomosis. He will lay omentum across the repair as well. At the cessation of my procedure, the sponge and instrument counts were correct. The Odell irrigant was pink. Job#: [id number]
[2018-10-04] MEDS ORDERED: HYDROMORPHONE 0.2MG/ML-SOD CHL 30ML PCA SYRINGE IV ONE (14:55)
[2018-10-04] MEDS ORDERED: ACETAMINOPHEN 1000 MG/100 ML IV PRN (15:00)
[2018-10-04] MEDS ORDERED: PROMETHAZINE HCL (IM) 25 MG/ML VIAL IV PRN (15:00)
[2018-10-04] MEDS ORDERED: NALOXONE HCL INJ 0.4 MG/ML AMP IV PRN (15:00)
[2018-10-04] MEDS ORDERED: HYDROMORPHONE 2MG/ML 2 MG/ML ML ONE (15:12)
--- NOTE | 2018-10-04 16:18 | Operative Report ---
DATE OF PROCEDURE: October 04, 2018 PREOPERATIVE DIAGNOSES 1. Status post perforated diverticulitis and colovesical fistula with end-colostomy and Aaron's pouch. 2. Large parastomal ventral hernia. POSTOPERATIVE DIAGNOSES 1. Status post perforated diverticulitis and colovesical fistula with end-colostomy and Aaron's pouch. 2. Large parastomal ventral hernia. OPERATIONS PERFORMED 1. Exploratory laparotomy. 2. Sigmoid colon resection take down of colostomy. 3. Repair of ventral hernia. 4. Closure of colovesical fistula by Dr. Ascencio. ANESTHESIA: General. COMPLICATIONS: None. ESTIMATED BLOOD LOSS: 100 mL. DESCRIPTION OF PROCEDURE: With the patient lying in bed in the lithotomy position with the legs up in stirrups, after Dr. Ascencio had performed a cystoscopy and placement of ureteral catheters, the abdomen and perineum were prepped with Betadine solution and draped in the usual manner. An incision was made around the colostomy site in the left lower quadrant, and immediately just below the skin a huge hernia sac was encountered, which was slowly and carefully from all of the surrounding structures and dissected all the way down to the fascia. The hernia sac was then opened, and the colon was then and divided with application of the ANTOINETTE-75 stapler. After this was done, all of the bowel was then reduced back to the intra-abdominal cavity. The excess of the hernia sac was and resected. There was a huge hole from the colostomy site that easily accepted 2 fists along the lateral border of the rectus fascia. After this was done, the area was then packed with Betadine pack and gloves and instruments were changed. The abdomen was then opened through a midline incision and taken down through the subcutaneous tissue through the midline fascia. The peritoneum was opened and the abdomen was entered. Upon entering the abdominal cavity, multiple adhesions were encountered from the patient's previous surgery. These were slowly and carefully taken down, and all of the colon was then easily accessible proximally. Examination at this point revealed an inflammatory mass, including the omentum and the sigmoid colon being stuck to the undersurface of the bladder on the left side. The omentum was then divided with the In-Seal device. After this was done, the bowel was then slowly and carefully from the lateral gutter. The left and right ureter were identified and preserved. The mesentery of the sigmoid colon was then divided with the In-Seal device, and the rectosigmoid junction was then divided with an application of the ANTOINETTE-75 stapler. At this point, the only attachment left was between the colon and the bladder. The case was at this point turned over to Dr. Ascencio who the bladder and the colon. The colon was sent as a specimen. He then proceeded to repair the bladder fistula, which he will dictate on a separate report. After this was done, the case was then turned back over to me. The rectal stump was then slowly and carefully from the pelvis, and brought up so that it would reach for the colonic anastomosis. This was done without any difficulty. The descending colon and the splenic flexure were then brought down to make sure that the colon reached without any tension. After this was done, the proximal staple line was then removed. A 29-EEA stapler anvil was placed in the proximal colon and sutured in place with a pursestring suture of 2-0 Prolene. Once this was done, we then went from below, and the anus and rectum were then dilated with EEA dilators. A #29 EEA dilator was then introduced transanally and brought out through the anterior portion of the rectosigmoid junction. Then the stapler and anvil were joined together. The stapler was closed and fired. Two perfect doughnuts were obtained. Gloves, gowns and instruments were then changed. The anastomosis was then reinforced with interrupted sutures of 3-0 silk. The abdomen was then copiously irrigated and perfect hemostasis was ascertained. The peritoneum of the hernia from the parastomal hernia was then closed with a running suture of #1 Vicryl. A 10 flat Ryder-Valentine drain was left in the pelvis and brought out through a stab wound incision in the right side of the abdomen. The bladder and colon were then with a lot of the redundant omentum that was present. The abdomen was then closed in layers. Peritoneum was closed with a running suture of #1 Vicryl. The midline fascia was closed with a #1 PDS. Subcutaneous tissue was approximated with 2-0 Vicryl and the skin was closed with clips. At this point, we turned our attention to the area of the colostomy site. There was a lot of excess skin from the huge hernia that was there. All of this was resected. After this was done, the fascial defect was then closed with interrupted sutures of #1Vicryl closing the hernia defect. At this point, no mesh was utilized because of the obvious contamination of the previous colostomy. The subcutaneous tissue was then reapproximated with 2-0 Vicryl. A 0.25-inch Jenni drain was left in place. The skin was closed with interrupted vertical mattress sutures of 2-0 nylon and clips. Dressings were applied. The sponge, lap and needle count was correct. The patient tolerated the procedure well and returned to the recovery room in stable condition. Job#: [id number] KEILA
--- OUTSIDE RECORDS SUMMARY | 2018-10-04 16:24 | XMS REPORT | Clinical Summary ---
Author Author [employer] Organization [employer] Address Unknown Phone Unavailable Care Team Providers Care Hr Assistant Name Role Phone Asked, No Pcp [...] information, ellen del valle contact: Gerald Cordero [address] [place] [address]
[2018-10-04] MEDS: HYDROMORPHONE 0.2MG/ML-SOD CHL 30ML PCA SYRINGE IV PRN ×2 (16:40→21:01)
[2018-10-04] MEDS ORDERED: CLINDAMYCIN PHOS 900MG/ 50ML 50 ML IV SCH (17:00)
[2018-10-04] MEDS ORDERED: ONDANSETRON HCL INJ 2MG/ML 2ML 2 MG/ML VIAL ONE (18:18)
[2018-10-04] MEDS ORDERED: ACETAMINOPHEN 1000 MG/100 ML IV ONE (18:18)
[2018-10-04] MEDS ORDERED: ROCURONIUM BROMIDE 10 MG/ML 5ML VIAL ONE (18:18)
[2018-10-04] MEDS ORDERED: LIDOCAINE HCL 2% LOCAL INJ 5 ML SDV VIAL INJ ONE (18:18)
[2018-10-04] MEDS ORDERED: SEVOFLURANE INHAL SOLN 250 ML PEN BTL ONE (18:18)
[2018-10-04] MEDS ORDERED: LIDOCAINE HCL 2% JELLY 5 ML TUBE ONE (18:18)
[2018-10-04] MEDS ORDERED: PROPOFOL IV EMULSION 10 MG/ML 20 ML VIAL ONE (18:18)
[2018-10-04] MEDS ORDERED: DEXAMETHASONE SOD PHOS INJ 4 MG/ML VIAL ONE (18:18)
[2018-10-04] MEDS: DEXTROSE 5%/LACTATED RINGERS 1,000 ML IV SCH (18:27)
[2018-10-04] MEDS: PANTOPRAZOLE 40 MG 10ML VIAL IV SCH (18:27)
[2018-10-04] MEDS: PIPER-TAZ 3.375 GM 50 ML IV SCH ×2 (18:27→23:28)
--- NOTE | 2018-10-04 19:21 | NUR ---
patient admitted to icu. oriented to room and unit. at bedside. educated with manager plan and pain control. Dr. Edmond rounded earlier. bp slightly elevated. encouraged patient with pain control. paged and spoke with dr. Villalobos. no new orders, wants to monitor patient at this time. updated oncoming nurse psychiatric aides teacher. night report given.
[2018-10-04] MEDS: CLINDAMYCIN PHOS 900MG/ 50ML 50 ML IV SCH (21:25)
[2018-10-04] MEDS: PROMETHAZINE 12.5MG/ NACL 0.9% 50 ML IV PRN (21:25)
--- NOTE | 2018-10-04 23:59 | NUR ---
THE 2358 SEPSIS INTERVENTION RESULTED IN SIRS ALERT. IN SHIFT REPORT BY ISRAEL DE LA CRUZ THAT DR LOGAN IS AWARE OF PATIENTs BLOOD PRESSURE AND HE IS THE MD THAT PERFORMED THE PATIENTs SURGERY. WILL CONTINUE TO MONITOR AND IF ANY OTHER CHANGES IN PATIENTs CONDITION WILL CALL ATTENDING MD
[2018-10-05] VITALS (14 sets, daily range): BP systolic 122–154; BP diastolic 64–89
--- NOTE | 2018-10-05 | NUR ---
PATIENTs VITAL SIGNS HAVE BEEN CHARTED Q1H SINCE SINCE SHIFT CHANGE. WILL CONTINUE TO CHART Q1HR AND WILL PRINT OUT PATIENTS ENTIRE VITAL SIGN REPORT INCLUDING THE Q15MIN THEN TO Q30MIN AT THE END OF MY SHIFT AND WILL BE PLACED UNDER THE VITAL SIGN TAB IN PATIENTs CHART
[2018-10-05] MEDS: DEXTROSE 5%/LACTATED RINGERS 1,000 ML IV SCH ×4 (01:57→17:32)
[2018-10-05 05:25] LABS: BASOPHILS % 0.1 % (0.0-1.0); HEMATOCRIT 34.2 % (38.2-49.6); HEMOGLOBIN 11.2 g/dL (14.0-18.0); LYMPHOCYTES % 6.4 % (18.0-39.1); MEAN CORPUSCULAR HEMOGLOBIN 25.7 pg (28-32); MEAN CORPUSCULAR HGB CONC 32.7 g/dL (31-35); MEAN CORPUSCULAR VOLUME 78.4 fL (81-99); MONOCYTES # (AUTO) 1.1 (0.2-0.8); NEUTROPHILS # (AUTO) 13.6 (2.1-6.9); NEUTROPHILS % 86.1 % (38.7-80.0); PLATELET COUNT 285 x10e3/uL (140-360); RED BLOOD COUNT 4.36 x10e6/uL (4.3-5.7); RED CELL DISTRIBUTION WIDTH 14.6 % (11.7-14.4)
[2018-10-05] MEDS: CLINDAMYCIN PHOS 900MG/ 50ML 50 ML IV SCH ×3 (05:43→21:31)
[2018-10-05] MEDS: PIPER-TAZ 3.375 GM 50 ML IV SCH ×3 (05:43→17:32)
[2018-10-05 05:46] LABS: ANION GAP 14.2 mmol/L (8-16); BLOOD UREA NITROGEN 12 mg/dL (7-26); BUN/CREATININE RATIO 14 (6-25); CALCIUM 8.6 mg/dL (8.4-10.2); CARBON DIOXIDE 24 mmol/L (22-29); CHLORIDE 102 mmol/L (98-107); CREATININE, SERUM 0.85 mg/dL (0.72-1.25); EST GLOMERULAR FILTRATION RATE > 60 ML/MIN (60-); GLUCOSE 132 mg/dL (74-118); POTASSIUM 4.2 mmol/L (3.5-5.1); SODIUM 136 mmol/L (136-145)
[2018-10-05] MEDS: HYDROMORPHONE 0.2MG/ML-SOD CHL 30ML PCA SYRINGE IV PRN ×2 (05:50→18:00)
--- NOTE | 2018-10-05 10:36 | NUR ---
patient complaining of sharp pain on his right side/back. medicated with iv tylenol, will reassess pain in 30 mins, instructed to press compressed yeast supervisor as needed to help
--- NOTE | 2018-10-05 14:05 | NUR ---
pt received to rm 100 aaxo3, no distress noted, beaulieu to bsd with pink urine noted, ivf infusing to L hand 20g, meat butcher pump at bedside, pt instructed on usage voiced understanding, denies pain at this time, call light in reach will continue to monitor
[2018-10-05] MEDS: PANTOPRAZOLE 40 MG 10ML VIAL IV SCH (15:00)
--- NOTE | 2018-10-05 19:15 | NUR ---
WALKING ROUNDS PERFORMED, RECEIVED PT STANDING BY SIDE OF BED AAOX3, RR EVEN AND NON-LABORED, ON RA. PT REPORTS HE IS GOING TO AMBULATE AROUND ROOM. SUBSTANCE ABUSE CLINICIAN BUTTON WITHIN REACH. LEFT PT AMBULATING IN ROOM WITH TECH AT SIDE.
[2018-10-06] VITALS (8 sets, daily range): BP systolic 118–151; BP diastolic 66–88
[2018-10-06] MEDS: PIPER-TAZ 3.375 GM 50 ML IV SCH ×4 (00:26→17:50)
[2018-10-06] MEDS: DEXTROSE 5%/LACTATED RINGERS 1,000 ML IV SCH ×3 (00:26→08:50)
[2018-10-06] MEDS: HYDROMORPHONE 0.2MG/ML-SOD CHL 30ML PCA SYRINGE IV PRN ×3 (04:42→19:38)
[2018-10-06] MEDS: CLINDAMYCIN PHOS 900MG/ 50ML 50 ML IV SCH ×3 (05:12→22:21)
[2018-10-06 06:07] LABS: BASOPHILS # (AUTO) 0.1 (0.0-0.1); BASOPHILS % 0.4 % (0.0-1.0); EOSINOPHILS # (AUTO) 0.1 (0.0-0.4); EOSINOPHILS % 0.5 % (0.0-6.0); HEMATOCRIT 29.4 % (38.2-49.6); HEMOGLOBIN 9.8 g/dL (14.0-18.0); LYMPHOCYTES # (AUTO) 2.1 (1.0-3.2); LYMPHOCYTES % 15.9 % (18.0-39.1); MEAN CORPUSCULAR HEMOGLOBIN 26.1 pg (28-32); MEAN CORPUSCULAR HGB CONC 33.3 g/dL (31-35); MEAN CORPUSCULAR VOLUME 78.2 fL (81-99); MONOCYTES # (AUTO) 1.1 (0.2-0.8); MONOCYTES % 8.6 % (4.4-11.3); NEUTROPHILS # (AUTO) 9.6 (2.1-6.9); NEUTROPHILS % 74.1 % (38.7-80.0); PLATELET COUNT 255 x10e3/uL (140-360); RED BLOOD COUNT 3.76 x10e6/uL (4.3-5.7); RED CELL DISTRIBUTION WIDTH 15.2 % (11.7-14.4)
[2018-10-06 06:30] LABS: ALANINE AMINOTRANSFERASE 34 IU/L (0-55); ALBUMIN 2.8 g/dL (3.5-5.0); ALBUMIN/GLOBULIN RATIO 0.8 (0.8-2.0); ALKALINE PHOSPHATASE 56 IU/L (40-150); ANION GAP 13.5 mmol/L (8-16); BLOOD UREA NITROGEN 9 mg/dL (7-26); BUN/CREATININE RATIO 11 (6-25); CALCIUM 8.5 mg/dL (8.4-10.2); CARBON DIOXIDE 26 mmol/L (22-29); CHLORIDE 102 mmol/L (98-107); CREATININE, SERUM 0.84 mg/dL (0.72-1.25); EST GLOMERULAR FILTRATION RATE > 60 ML/MIN (60-); GLUCOSE 96 mg/dL (74-118); POTASSIUM 3.5 mmol/L (3.5-5.1); SODIUM 138 mmol/L (136-145)
--- NOTE | 2018-10-06 07:00 | NUR ---
bedside rounds complete no distress noted, updated on poc voiced understanding, dsg to abdomen c/d/i, gerardo drain with serous drainage noted, co pain 02/10, paper cutter operator pump at bedside, no other co voiced call light in reach will continue to monitor
[2018-10-06] MEDS ORDERED: POTASSIUM CHLORIDE 20MEQ/100ML 100 ML IV ONE (11:45)
[2018-10-06] MEDS ORDERED: ACETAMINOPHEN 1000 MG/100 ML IV PRN (12:00)
[2018-10-06] MEDS ORDERED: SODIUM CHLORIDE 0.9% 250ML 250 ML ONE (12:30)
[2018-10-06] MEDS: PANTOPRAZOLE 40 MG 10ML VIAL IV SCH (15:30)
[2018-10-06 16:23] LABS: BILIRUBIN,URINE NEGATIVE (NEGATIVE); CLARITY,URINE HAZY (CLEAR); COLOR,URINE YELLOW (YELLOW); KETONES,URINE NEGATIVE (NEGATIVE); LEUKOCYTE ESTERASE ,URINE NEGATIVE (NEGATIVE); NITRITE,URINE NEGATIVE (NEGATIVE); PROTEIN,URINE DIPSTICK TRACE (NEGATIVE); RBC,URINE 21-50 /HPF (0-5); URINE UROBILINOGEN 0.2 mg/dL (0.2 - 1); WBC,URINE (MAN) 0-5 /HPF (0-5)
--- NOTE | 2018-10-06 19:06 | NUR ---
WALKING ROUNDS PERFORMED, RECEIVED PT STANDING BY BY SIDE OF BED, PT REPORTS HE HAD JUST FINISHED AMBULATING IN [facility]. PT IS AAOX3, RR EVEN AND NON-LABORED, ON RA. BICYCLE RACER BUTTON WITHIN REACH. LEFT PT LAYING SEMI FOWLERS IN BED, BED IN LOW LOCKED POSITION, SIDE RAILS UPX2, CALL LIGHT AND PHONE WITHIN REACH. FAMILY AT BEDSIDE.
[2018-10-07] VITALS (8 sets, daily range): BP systolic 150–160; BP diastolic 72–93
[2018-10-07] MEDS: DEXTROSE 5%/LACTATED RINGERS 1,000 ML IV SCH ×4 (01:35→17:26)
[2018-10-07] MEDS: PIPER-TAZ 3.375 GM 50 ML IV SCH ×4 (01:35→17:26)
[2018-10-07 05:59] LABS: BASOPHILS % 0.3 % (0.0-1.0); EOSINOPHILS # (AUTO) 0.1 (0.0-0.4); EOSINOPHILS % 0.8 % (0.0-6.0); HEMATOCRIT 34.9 % (38.2-49.6); HEMOGLOBIN 10.8 g/dL (14.0-18.0); LYMPHOCYTES # (AUTO) 1.3 (1.0-3.2); LYMPHOCYTES % 10.6 % (18.0-39.1); MEAN CORPUSCULAR HEMOGLOBIN 25.1 pg (28-32); MEAN CORPUSCULAR HGB CONC 30.9 g/dL (31-35); MONOCYTES # (AUTO) 0.7 (0.2-0.8); MONOCYTES % 5.8 % (4.4-11.3); NEUTROPHILS # (AUTO) 9.7 (2.1-6.9); PLATELET COUNT 286 x10e3/uL (140-360); RED BLOOD COUNT 4.31 x10e6/uL (4.3-5.7)
[2018-10-07 06:00] LABS: INR 1.05; PROTHROMBIN TIME 14.6 seconds (11.9-14.5)
[2018-10-07 06:10] LABS: ALANINE AMINOTRANSFERASE 29 IU/L (0-55); ALBUMIN 2.8 g/dL (3.5-5.0); ALBUMIN/GLOBULIN RATIO 0.7 (0.8-2.0); ALKALINE PHOSPHATASE 61 IU/L (40-150); ANION GAP 14.6 mmol/L (8-16); BLOOD UREA NITROGEN 6 mg/dL (7-26); BUN/CREATININE RATIO 8 (6-25); CARBON DIOXIDE 26 mmol/L (22-29); CHLORIDE 100 mmol/L (98-107); CREATININE, SERUM 0.78 mg/dL (0.72-1.25); EST GLOMERULAR FILTRATION RATE > 60 ML/MIN (60-); GLUCOSE 137 mg/dL (74-118); POTASSIUM 3.6 mmol/L (3.5-5.1); SODIUM 137 mmol/L (136-145)
[2018-10-07] MEDS: CLINDAMYCIN PHOS 900MG/ 50ML 50 ML IV SCH ×3 (06:14→22:30)
--- NOTE | 2018-10-07 07:26 | NUR ---
Received patient and walking rounds complete. Patient asleep resting in bed at this time no signs of distress. Bed in lowest position, wheels locked, side rails x2, call light in reach.
[2018-10-07] MEDS ORDERED: BISACODYL 10 MG SUPP PR ONE (08:00)
--- NOTE | 2018-10-07 10:00 | NUR ---
Patient A/O X3, even respirations on RA. Bowel sounds hypoactive. Last BM Sunday. Right AC 20 gauge with D5LR @ 150MLS/HR and MANAGER BILLING pump Dilaudid. Left hand 22 gauge IV SL. Odell in place with yellow urine. Abdominal dressing dry and intact with velcro binder. OBI drain, draining serous fluid. [place] drain also in place. Patient is NPO with ice chips at this time. Call light in reach will continue to monitor.
--- NOTE | 2018-10-07 10:17 | NUR ---
CASE MANAGEMENT INITIAL ASSESSMENT Site Damage Prevention Technician to bedside to discuss plan of care with patient/family. CM/SW role and care transitions discussed. Anticipated discharge plan discussed along with duration of care. CM/SW discussed patients right to make decisions in care. CM/SW work hours given. Patient lives: with Ezekiel Admit/Transfer: from home. came for procedure. Hospital/ER visits since last admit: pt states he was last hospitalized "a few months ago"; last admission here was in June 2018 POA/Emergency contact: Ezekiel Henry [phone] Current/Previous Home Health: none PCP/Follow-up Care: Dr. Abbott Current/Previous DME: none; pt is independent Medications (referring to index hospitalization or the first time you were in the hospital) a. Were changes made in your medications when you were in the hospital on [date of index hospitalization]? no b. Did you understand the changes? n/a c. Were you able to obtain your new medications right away? n/a d. Were you able to take your medications like the doctor wanted you to? yes e. Did the hospital give you an accurate, easy to understand list of medications when you left? yes Scale of 1-10 how comfortable does patient feel with disease management in outpatient setting: Other Services: none Employment Status: employed at [employer] Areas of Concerns: none Referral Needs: may need home health Education Needs: medical management, wound care IMM/MCKEON given and signed (if applicable): n/a Goal for discharge: return home independently CM/SW left business card at the bedside with contact information. Name and number was also written on the patients whiteboard. Patient verbalized understanding of discussion. CM will follow-up with ongoing discharge and transition of care needs.
[2018-10-07] MEDS: HYDROMORPHONE 0.2MG/ML-SOD CHL 30ML PCA SYRINGE IV PRN ×2 (11:22→20:41)
--- NOTE | 2018-10-07 14:34 | NUR ---
Verbal orders with repeat back from Dr. Teresa Roe for sips of clear liquids; clear liquid diet.
[2018-10-07] MEDS: PANTOPRAZOLE 40 MG 10ML VIAL IV SCH (14:54)
--- NOTE | 2018-10-07 19:37 | NUR ---
RECEIVED PATIENT AAOX3, STABLE CONDITION. IT RISK AND ASSURANCE MANAGER PAIN BUTTON WITHIN EASY REACH. CALL LIGHT WITHIN EASY REACH. BED LOCKED AND IN LOWEST POSITION. NO NEEDS VOICED AT THIS TIME WILL CONTINUE TO MONITOR THE PATIENT.
[2018-10-07] MEDS: BISACODYL 10 MG SUPP PR SCH (21:00)
--- NOTE | 2018-10-07 21:32 | NUR ---
Patient refused dulcolex suppository. He had a small loose, little, bloody liquid stool. It was bright red in color. Patient denies straining and pain from rectum.
[2018-10-08] VITALS (7 sets, daily range): BP systolic 140–177; BP diastolic 72–88
[2018-10-08] MEDS: PIPER-TAZ 3.375 GM 50 ML IV SCH ×4 (00:49→17:40)
[2018-10-08] MEDS: PROMETHAZINE 12.5MG/ NACL 0.9% 50 ML IV PRN (03:25)
--- NOTE | 2018-10-08 04:52 | NUR ---
patient asleep with no pain or distress noted.
[2018-10-08] MEDS: DEXTROSE 5%/LACTATED RINGERS 1,000 ML IV SCH ×3 (05:34→19:44)
[2018-10-08] MEDS: CLINDAMYCIN PHOS 900MG/ 50ML 50 ML IV SCH ×3 (06:16→22:45)
--- NOTE | 2018-10-08 07:18 | NUR ---
Report given to morning nurse. No pain or distress noted.
--- NOTE | 2018-10-08 07:20 | NUR ---
Received patient and walking rounds complete. Patient resting in bed at this time, no signs of distress noted. Bed in lowest position, wheels locked, side rails up x2, call light in reach.
[2018-10-08] MEDS: BISACODYL 10 MG SUPP PR SCH (07:33)
--- NOTE | 2018-10-08 10:00 | NUR ---
Patient A/O X3, even respirations on RA. Left hand 22 gauge IV SL, right AC 20 gauge with D5LR @ 100 mls/hr. Abdominal dressing dry/intact, Velcro binder across abdomen. OBI drain putting out serosanguineous fluid. Odell in place with dark marcos urine. ORTHODONTIC ASSISTANT pump with Dilaudid. Patient has had a BM today, bowel sounds active. Patient is ambulatory with standby assist. Will continue to monitor.
--- NOTE | 2018-10-08 10:47 | NUR ---
Emptied 30cc out of OBI drain, serosanguineous fluid.
[2018-10-08] MEDS: HYDROMORPHONE 0.2MG/ML-SOD CHL 30ML PCA SYRINGE IV PRN (13:45)
[2018-10-08] MEDS: PANTOPRAZOLE 40 MG 10ML VIAL IV SCH (15:54)
[2018-10-09] VITALS (8 sets, daily range): BP systolic 117–165; BP diastolic 60–79
[2018-10-09] MEDS: PIPER-TAZ 3.375 GM 50 ML IV SCH ×4 (00:48→17:59)
[2018-10-09] MEDS: HYDROMORPHONE 0.2MG/ML-SOD CHL 30ML PCA SYRINGE IV PRN (03:02)
[2018-10-09 05:39] LABS: BASOPHILS % 0.4 % (0.0-1.0); EOSINOPHILS # (AUTO) 0.4 (0.0-0.4); EOSINOPHILS % 4.7 % (0.0-6.0); HEMATOCRIT 30.6 % (38.2-49.6); HEMOGLOBIN 9.7 g/dL (14.0-18.0); LYMPHOCYTES # (AUTO) 2.8 (1.0-3.2); LYMPHOCYTES % 29.3 % (18.0-39.1); MEAN CORPUSCULAR HEMOGLOBIN 25.1 pg (28-32); MEAN CORPUSCULAR HGB CONC 31.7 g/dL (31-35); MEAN CORPUSCULAR VOLUME 79.3 fL (81-99); MONOCYTES # (AUTO) 0.6 (0.2-0.8); MONOCYTES % 6.5 % (4.4-11.3); NEUTROPHILS # (AUTO) 5.5 (2.1-6.9); NEUTROPHILS % 58.6 % (38.7-80.0); PLATELET COUNT 291 x10e3/uL (140-360); RED BLOOD COUNT 3.86 x10e6/uL (4.3-5.7); RED CELL DISTRIBUTION WIDTH 14.9 % (11.7-14.4)
[2018-10-09] MEDS: CLINDAMYCIN PHOS 900MG/ 50ML 50 ML IV SCH ×3 (05:59→22:03)
[2018-10-09 06:11] LABS: ALANINE AMINOTRANSFERASE 40 IU/L (0-55); ALBUMIN 2.5 g/dL (3.5-5.0); ALBUMIN/GLOBULIN RATIO 0.7 (0.8-2.0); ALKALINE PHOSPHATASE 69 IU/L (40-150); ANION GAP 12.1 mmol/L (8-16); BLOOD UREA NITROGEN 6 mg/dL (7-26); BUN/CREATININE RATIO 8 (6-25); CALCIUM 8.6 mg/dL (8.4-10.2); CARBON DIOXIDE 24 mmol/L (22-29); CHLORIDE 103 mmol/L (98-107); CREATININE, SERUM 0.73 mg/dL (0.72-1.25); EST GLOMERULAR FILTRATION RATE > 60 ML/MIN (60-); GLUCOSE 97 mg/dL (74-118); POTASSIUM 3.1 mmol/L (3.5-5.1); SODIUM 136 mmol/L (136-145)
--- NOTE | 2018-10-09 09:00 | NUR ---
Spoke to Dr. Teresa Roe regarding discharge plan. He stated advancing diet today. If pt able to tolerate, may discharge tomorrow.
[2018-10-09] MEDS: DEXTROSE 5%/LACTATED RINGERS 1,000 ML IV SCH (09:06)
--- NOTE | 2018-10-09 09:12 | NUR ---
MD Teresa LOGAN INTO SEE PT, ORDERS NOTED
[2018-10-09] MEDS ORDERED: HYDROCODONE/APAP 10MG-325MG TAB PO PRN (09:15)
[2018-10-09] MEDS ORDERED: HYDROMORPHONE 1MG/1ML INJ IV PRN ×2 (09:15)
[2018-10-09] MEDS ORDERED: POTASSIUM CHLORIDE 10MEQ EA PO NR ×2 (11:00→16:00)
[2018-10-09] MEDS: HYDROCODONE/APAP 10MG-325MG TAB PO PRN ×4 (14:33→23:07)
[2018-10-09] MEDS: PANTOPRAZOLE 40 MG 10ML VIAL IV SCH (15:43)
[2018-10-09] MEDS ORDERED: POTASSIUM CHLORIDE 10MEQ EA ONE (19:06)
--- NOTE | 2018-10-09 19:28 | NUR ---
WALKING ROUNDS PERFORMED, RECEIVED PT LAYING SEMI FOWLERS IN BED, AAOX3, RR EVEN AND NON-LABORED, ON RA. NO S/SX OF DISTRESS NOTED. LEFT PT LAYING SEMI FOWLERS IN BED, BED IN LOW LOCKED POSITION, SIDE RAILS UPX2, CALL LIGHT AND PHONE WITHIN REACH.
[2018-10-09] MEDS: HYDROMORPHONE 2MG/ML 2 MG/ML ML IV PRN (20:46)
--- NOTE | 2018-10-09 22:53 | NUR ---
While flushing IV site on left hand, patient complained of pain so I took out the IV, the catheter was intact.
[2018-10-10] VITALS: BP 147/77
[2018-10-10] MEDS: PIPER-TAZ 3.375 GM 50 ML IV SCH ×4 (00:20→17:38)
[2018-10-10] MEDS: HYDROMORPHONE 2MG/ML 2 MG/ML ML IV PRN ×3 (02:16→16:41)
[2018-10-10 04:00] VITALS: BP 132/73
[2018-10-10] MEDS: CLINDAMYCIN PHOS 900MG/ 50ML 50 ML IV SCH ×2 (05:18→13:14)
[2018-10-10] MEDS: DEXTROSE 5%/LACTATED RINGERS 1,000 ML IV SCH (05:26)
[2018-10-10] MEDS: HYDROCODONE/APAP 10MG-325MG TAB PO PRN ×3 (06:00→20:02)
[2018-10-10 06:07] LABS: ANION GAP 15.2 mmol/L (8-16); BLOOD UREA NITROGEN 8 mg/dL (7-26); BUN/CREATININE RATIO 11 (6-25); CALCIUM 8.6 mg/dL (8.4-10.2); CARBON DIOXIDE 22 mmol/L (22-29); CHLORIDE 102 mmol/L (98-107); CREATININE, SERUM 0.73 mg/dL (0.72-1.25); EST GLOMERULAR FILTRATION RATE > 60 ML/MIN (60-); GLUCOSE 87 mg/dL (74-118); MAGNESIUM 1.9 MG/DL (1.3-2.1); POTASSIUM 3.2 mmol/L (3.5-5.1); SODIUM 136 mmol/L (136-145)
--- NOTE | 2018-10-10 07:09 | NUR ---
pt alert resp even and unlabored at this time no distress noted, pt easily aroused to name no c/o pain when asked, call light in reach.
[2018-10-10 08:13] VITALS: BP 133/76
[2018-10-10] MEDS ORDERED: POTASSIUM CHLORIDE 20 MEQ TAB CR PO NR (08:30)
[2018-10-10 12:00] VITALS: BP 132/79
[2018-10-10] MEDS: PANTOPRAZOLE 40 MG 10ML VIAL IV SCH (15:21)
[2018-10-10 16:44] VITALS: BP 139/66
--- NOTE | 2018-10-10 16:58 | NUR ---
Nutrition Screen Note RD Recommendation for Physician: Plan of Care: RD following, monitoring for adequacy and tolerance Nutrition reason for involvement: LOS Primary Diagnose(s): Colovesicular fistula and ventral hernia Ht:72 in Wt:299lbs BMI:40.6 kg/m2 IBW:178lbs RD Assessment:(10/10/2018) Eating well and denies any nausea or vomiting or diarrhea. Denies any difficulty chewing or swallowing. Current Diet: GI soft Malnutrition Evaluation (10/10/2018) The patient does not meet criteria for a specified degree of malnutrition at this time. Will re-evaluate at follow-up as appropriate. Diet Education Needs Assessment: Diet education not indicated. Diet Adequacy: Meeting calorie needs, Meeting protein needs, Meeting fluid needs Tolerance: Tolerating PO Nutrition Care Level:maddie Nascimento RD, LD, [facility]
--- NOTE | 2018-10-10 19:13 | NUR ---
WALKING ROUNDS PERFORMED, RECEIVED PT LAYING SEMI FOWLERS IN BED, AAOX3, RR EVEN AND NON-LABORED, ON RA. ANTERIOR ABD DRESSING CDI, YANES INTACT DRAINING TO BEDSIDE BAG. PT AWARE OF PENDING DISCHARGE, PT REPORTS HIS RIDE IS THE WAY. LEFT PT LAYING SEMI FOWLERS IN BED, BED IN LOW LOCKED POSITION, SIDE RAILS UPX2, CALL LIGHT AND PHONE WITHIN REACH.
--- NOTE | 2018-10-10 19:57 | NUR ---
report given to oncoming nurse
[2018-10-10 20:00] VITALS: BP 147/63
[2018-10-10] MEDS ORDERED: NORCO 7.5-3251 EACH PO (20:45)
[2018-10-10] MEDS ORDERED: LEVAQUIN500 MG PO (20:45)
--- NOTE | 2018-10-10 21:16 | NUR ---
PATIENT IS BEING DISCHARGED HOME WITH HIS . DISCHARGE INSTRUCTIONS, RX AND PAPERS WERE GIVEN. PATIENT AND PATIENT UNDERSTOOD DISCHARGE INSTRUCTIONS. PATIENT IS LEAVING VIA WHEELCHAIR. IV WAS TAKEN OUT AND CATHETER TIP INTACT.
== END 2018-10-10 21:18 | disposition home or self-care (01) | DRG 654 ==
LOC: OR 05:00 → ICU 16:22 → MED/SURG 10-05 14:11
PROVIDERS: ADMIT Surgery; ATTEND Surgery
PROC: BT141ZZ Fluoroscopy of Kidneys, Ureters and Bladder using Low Osmolar Contrast (ICD-10-PCS; 2018-10-04)
PROC: 0DSN0ZZ Reposition Sigmoid Colon, Open Approach (ICD-10-PCS; principal; 2018-10-04 08:13)
PROC: 0TQB0ZZ Repair Bladder, Open Approach (ICD-10-PCS; 2018-10-04 08:13)
PROC: 0WQF0ZZ Repair Abdominal Wall, Open Approach (ICD-10-PCS; 2018-10-04 08:13)
DX: N32.1 Vesicointestinal fistula (principal); K43.6 Other and unspecified ventral hernia with obstruction, without gangrene; N39.0 Urinary tract infection, site not specified; Z68.41 Body mass index [BMI] 40.0-44.9, adult; R31.29 Other microscopic hematuria; I10 Essential (primary) hypertension; D72.829 Elevated white blood cell count, unspecified; D64.9 Anemia, unspecified; E66.01 Morbid (severe) obesity due to excess calories; F41.9 Anxiety disorder, unspecified; Z01.810 Encounter for preprocedural cardiovascular examination; Z01.812 Encounter for preprocedural laboratory examination; Z88.8 Allergy status to other drugs, medicaments and biological substances
CPT/HCPCS: 36415; 74420; 80048; 80053; 81001; 83605; 83735; 85025; 85610; 86850; 86900; 87040; 87086; 88307; 93005; J1100; J2001; J2250; J2270; J2405; J2543; J2550; J3480; J7050

== ENCOUNTER → 2018-11-05 | Outpatient (CLI) | payer BC ==
[~2018-11-05] MED LIST changes: +LEVAQUIN500 MG PO; +NORCO 7.5-3251 EACH PO; +SODIUM CHLORIDE 0.9% 500ML 500 ML ONE
--- NOTE | 2018-11-05 17:15 | Diagnostic Imaging Report ---
EXAM: CT Pelvis without and WITH contrast INDICATION: ^MICROSCOPIC HEMATURIA bladder fistula repair. COMPARISON: CT abdomen and pelvis 06/12/2018. TECHNIQUE: Pelvis were scanned utilizing a multidetector helical scanner from the iliac crest to the pubic symphysis after administration of IV contrast. Coronal and sagittal reformations were obtained. Routine protocol was performed. Scan was performed without contrast, after infusion of contrast mixture, and after drainage of contrast mixture. IV CONTRAST: None. ORAL CONTRAST: Water Contrast administered via Odell catheter: 50 mL Isovue-370 diluted in 500 mL saline. 100 mL were infused of the mixture. COMPLICATIONS: None RADIATION DOSE: Total DLP: 1029.20 mGy*cm Estimated effective dose: (DLP x 0.015 x size factor) mSv CTDIvol has been reviewed. It is below the limits set by the Radiation Protocol Committee (RPC). Dose modulation, iterative reconstruction, and/or weight based adjustment of the mA/kV was utilized to reduce the radiation dose to as low as reasonably achievable. FINDINGS: LINES and TUBES: None. GI TRACT: No abnormal distention, wall thickening, or evidence of bowel obstruction. Appendix is normal. PELVIC ORGANS/BLADDER: Bladder wall thickening along the anterior aspect with surgical sutures. There is persistent wall thickening related to the surgery. No evidence of contrast extravasation or leakage identified. LYMPH NODES: No lymphadenopathy. VESSELS: Unremarkable. PERITONEUM / RETROPERITONEUM: No free air or fluid. Postsurgical stranding along the anterior abdomen and extraperitoneal space of Retzius. BONES: Unremarkable. SOFT TISSUES: Midline laparotomy scar. IMPRESSION: Intact anterior and superior postsurgical changes of the bladder. No evidence of leak. Signed by: Dr. Rex Fountain M.D. on 11/05/2018 5:12 PM
== END ==
LOC: CT 13:30
PROVIDERS: ATTEND Urology
DX: R31.29 Other microscopic hematuria (principal)
CPT/HCPCS: 72193; J7040